=== PATIENT | male | born 1995 ===

== ENCOUNTER 2016-11-20 22:34 | Emergency (ER) | payer SELFPAY ==
[2016-11-20 23:04] VITALS: O2SAT 100
--- NOTE | 2016-11-20 23:12 | ED PDOC ---
HPI: General Adult Time Seen by Provider: 11/20/16 23:05 Chief Complaint (Nursing): Cough, Cold, Congestion Chief Complaint (Provider): possible fever History Per: Patient Additional Complaint(s): 20 year old male with no past medical history presents with sore throat, headache and body aches x 1 day. Patient is tolerating liquids and solids. He has felt as if he has had fever but did not measure temperature. Patient denies any coughing or congestion. Denies recent travel or known sick contacts. Patient states that he gets frequent throat infections. Past Medical History Reviewed: Historical Data, Nursing Documentation, Vital Signs Vital Signs: Last Vital Signs Temp 98.7 F 11/20/16 23:03 Pulse 87 11/20/16 23:03 Resp 18 11/20/16 23:03 BP 131/93 H 11/20/16 23:03 Pulse Ox 100 11/21/16 01:13 - Medical History PMH: No Chronic Diseases - Surgical History Surgical History: No Surg Hx - Family History Family History: States: No Known Family Hx - Living Arrangements Living Arrangements: With Family - Social History Current smoker - smoking cessation education provided: Yes Alcohol: Occasional Drugs: Denies - Home Medications Home Medications: Ambulatory Orders Medication Instructions Recorded Ibuprofen [Motrin] 600 mg PO Q6 PRN #15 tab 11/21/16 Oseltamivir Phosphate [Tamiflu] 75 mg PO BID #10 capsule 11/21/16 - Allergies Allergies/Adverse Reactions: Allergies Allergy/AdvReac Type Severity Reaction Status Date / Time No Known Allergies Allergy Verified 11/20/16 23:02 Review of Systems ROS Statement: Except As Marked, All Systems Reviewed And Found Negative Constitutional: Positive for: Fever (subjective), Chills ENT: Positive for: Throat Pain Respiratory: Negative for: Cough Gastrointestinal: Negative for: Nausea, Vomiting Neurological: Positive for: Headache. Negative for: Dizziness Physical Exam - Reviewed Nursing Documentation Reviewed: Yes Vital Signs Reviewed: Yes - Physical Exam Appears: Positive for: Well, Non-toxic, No Acute Distress Head Exam: Positive for: ATRAUMATIC, NORMAL INSPECTION Skin: Negative for: Rash Eye Exam: Positive for: Normal appearance, EOMI, PERRL ENT: Positive for: TM Is/Are (normal bilaterally), Pharyngeal Erythema, Tonsillar Swelling. Negative for: Nasal Congestion, Tonsillar Exudate Cardiovascular/Chest: Positive for: Regular Rate, Rhythm Respiratory: Positive for: Normal Breath Sounds Gastrointestinal/Abdominal: Positive for: Normal Exam, Soft. Negative for: Tenderness Extremity: Positive for: Normal ROM. Negative for: Pedal Edema Neurologic/Psych: Positive for: Alert, Oriented - ECG O2 Sat by Pulse Oximetry: 100 Pulse Ox Interpretation: Normal Medical Decision Making Medical Decision Makin20 year old with headache and sore throat. Patient is afebrile, well appearing upon arrival, non-toxic appearing. Plan: Rapid strep, throat culture Flu swab PO motrin Flu B is positive. Patient given prescriptions for Tamiflu and Motrin. He was advised to rest and drink plenty of fluids. Patient was referred to clinic for follow-up. Disposition - Clinical Impression Clinical Impression: Influenza B - Patient ED Disposition Is Patient to be Admitted: No Counseled Patient/Family Regarding: Studies Performed, Diagnosis, Need For Followup, Rx Given - Disposition Referrals: [facility] [Outside] Disposition: Routine/Home Disposition Time: 01:11 Condition: STABLE Additional Instructions: Drink plenty of fluids and get plenty of rest. Take prescription meds as directed. Follow up with clinic in 2-3 days. Prescriptions: Ibuprofen [Motrin] 600 mg PO Q6 PRN #15 tab PRN Reason: Pain, Moderate (4-7) Oseltamivir Phosphate [Tamiflu] 75 mg PO BID #10 capsule Instructions: Influenza (ED)
[2016-11-21 01:21] VITALS: BP 131/84; PULSE 84; RESP 17; TEMP 98.3
== END 2016-11-21 01:16 | disposition home or self-care (01) ==
LOC: H.ER 22:34
DX: J10.1 Influenza due to other identified influenza virus with other respiratory manifestations (principal); F17.200 Nicotine dependence, unspecified, uncomplicated